=== PATIENT | female | born 1975 | race African-American/Black ===

== ENCOUNTER 2024-11-29 05:49 | Inpatient (IN) | payer BC, OTHER ==
[~2024-11-29] VITALS: Ht 170.2 cm; Wt 92.1 kg
[2024-11-29 05:55] VITALS: O2SAT 98
[2024-11-29 06:47] LABS: BASOPHILS % 0.8 % (0.0-2.0); EOSINOPHILS % 3.2 % (0.0-5.0); HEMATOCRIT. 35.9 % (36.0-48.0); HEMOGLOBIN. 11.8 g/dL (12.0-16.0); LYMPHOCYTES % 23.7 % (20.0-50.0); MEAN PLATELET VOLUME 9.5 fl (7.4-10.4); MONOCYTES % 7.9 % (2.0-8.0); NEUTROPHILS % 64.4 % (40.0-76.0); PLATELET 212 x1000/uL (130-400); RED BLOOD CELL COUNT 4.27 mill/uL (4.2-5.4); RED CELL DISTRIBUTION WIDTH 16.2 % (11.6-14.6)
[2024-11-29 07:03] LABS: CREATININE 1.0 mg/dL (0.6-1.0)
[2024-11-29 07:04] LABS: UREA NITROGEN BLOOD 21 mg/dL (9-23)
[2024-11-29 07:05] LABS: ASPARTATE AMINOTRANSFERASE 15 IU/L (<34)
[2024-11-29] MEDS: ONDANSETRON HCL 4MG/2ML INJ IV ONE (07:05)
[2024-11-29] MEDS: SODIUM CHLORIDE 0.9% 1,000 ML IV ONE (07:05)
[2024-11-29] MEDS: MECLIZINE 25MG TABLET PO ONE (07:05)
[2024-11-29 07:06] LABS: BILIRUBIN DIRECT < 0.1 mg/dL (<=3.0); BILIRUBIN TOTAL 0.3 mg/dL (0.1-1.0); PROTEIN TOTAL 7.1 g/dL (6.0-8.3)
[2024-11-29] MEDS ORDERED: MAGNESIUM/ALUMINUM HYDROXIDE/SIMETHICONE 30ML UDC PO PRN (11:30)
[2024-11-29] MEDS ORDERED: CLONIDINE 0.1MG TABLET PO PRN (11:30)
[2024-11-29] MEDS ORDERED: ACETAMINOPHEN 325MG TABLET PO PRN ×2 (11:30)
[2024-11-29] MEDS ORDERED: GUAIFENESIN 200MG/10ML SUGAR FREE UDC PO PRN (11:30)
[2024-11-29] MEDS ORDERED: IPRATROPIUM/ALBUTEROL 0.5-3(2.5)MG/3ML NEB HHN PRN (11:30)
[2024-11-29] MEDS ORDERED: DOCUSATE SODIUM 100MG CAPSULE PO PRN (11:30)
[2024-11-29 11:54] LABS: PHOSPHORUS 3.7 mg/dL (2.5-4.9)
[2024-11-29 12:00] VITALS: BP 127/69; PULSE 61; RESP 18; TEMP 36.3; TEMP 36.3068; O2SAT 97
[2024-11-29] MEDS: ENOXAPARIN 40MG/0.4ML SYR SUBCUT SCH (12:00)
[2024-11-29 12:20] LABS: FOLIC ACID (FOLATE) SERUM 19.25 ng/mL (>5.38); VITAMIN B12 SERUM 432 pg/mL (211-911)
[2024-11-29] MEDS: ONDANSETRON HCL 4MG/2ML INJ IV PRN (12:31)
[2024-11-29 16:00] VITALS: BP 121/80; PULSE 61; RESP 18; TEMP 36.4; O2SAT 96
[2024-11-29 18:58] LABS: CREATINE KINASE MB FRACTION 0.8 ng/mL (0.5-3.6); TROPONIN I HIGH SENSITIVITY < 4 ng/L (3.0-34)
[2024-11-29 20:00] VITALS: BP_SYST 116; BP_SYST 119; BP_SYST 124; BP_DIAS 67; BP_DIAS 72; BP_DIAS 76; PULSE 63; RESP 18; TEMP 37.6; O2SAT 96
[2024-11-29 22:51] LABS: CLARITY URINE CLEAR (CLEAR); COLOR URINE YELLOW (YELLOW); GLUCOSE URINE NEGATIVE (NEGATIVE); KETONES URINE TRACE (NEGATIVE); LEUKOCYTE ESTERASE URINE NEGATIVE (NEGATIVE); NITRITE URINE NEGATIVE (NEGATIVE); OCCULT BLOOD URINE 3+ (NEGATIVE); PH URINE 7.5 (4.5-8.0); PROTEIN URINE NEGATIVE (NEGATIVE); SPECIFIC GRAVITY URINE 1.021 (1.005-1.030); UROBILINOGEN URINE 0.2 E.U./dL (0.2-1.0)
[2024-11-29 22:54] LABS: BACTERIA URINE TRACE; SQUAMOUS EPITHELIAL CELL URINE FEW /lpf (RARE/1+); WBC URINE 0-2 /hpf (0-2)
[2024-11-29 23:06] LABS: *AMPHETAMINES SCREEN URINE NEGATIVE (NEGATIVE); *BARBITURATES SCREEN URINE NEGATIVE (NEGATIVE); *BENZODIAZEPINES SCREEN URINE NEGATIVE (NEGATIVE); *COCAINE SCREEN URINE NEGATIVE (NEGATIVE); CANNABINOID URINE SCREEN NEGATIVE (NEGATIVE); ECSTASY MDMA SCREEN URINE NEGATIVE (NEGATIVE); METHADONE URINE SCREEN NEGATIVE (NEGATIVE); OPIATES URINE SCREEN NEGATIVE (NEGATIVE); PHENCYCLIDINE URINE SCREEN NEGATIVE (NEGATIVE)
[2024-11-30] VITALS: BP 128/64; PULSE 67; RESP 18; TEMP 36.7; O2SAT 95
[2024-11-30 04:00] VITALS: BP 114/64; PULSE 62; RESP 18; TEMP 36.5; O2SAT 98
[2024-11-30] MEDS: TRAMADOL 50MG TABLET PO SCH (05:32)
[2024-11-30 06:21] LABS: CREATINE KINASE MB FRACTION 0.6 ng/mL (0.5-3.6)
[2024-11-30 06:22] LABS: TROPONIN I HIGH SENSITIVITY < 4 ng/L (3.0-34)
[2024-11-30 06:25] LABS: T4 FREE 1.21 ng/dL (0.89-1.76)
[2024-11-30 06:26] LABS: CREATININE 1.0 mg/dL (0.6-1.0); TRIGLYCERIDE 151 mg/dL (0-150); UREA NITROGEN BLOOD 15 mg/dL (9-23)
[2024-11-30 06:27] LABS: LDL CHOLESTEROL 154 mg/dL (5-100)
[2024-11-30 06:30] LABS: BASOPHILS % 0.4 % (0.0-2.0); EOSINOPHILS % 3.2 % (0.0-5.0); HEMATOCRIT. 35.6 % (36.0-48.0); HEMOGLOBIN. 11.5 g/dL (12.0-16.0); LYMPHOCYTES % 22.6 % (20.0-50.0); MEAN PLATELET VOLUME 10.2 fl (7.4-10.4); MONOCYTES % 7.1 % (2.0-8.0); NEUTROPHILS % 66.7 % (40.0-76.0); PLATELET 222 x1000/uL (130-400); RED BLOOD CELL COUNT 4.29 mill/uL (4.2-5.4); RED CELL DISTRIBUTION WIDTH 16.2 % (11.6-14.6)
[2024-11-30] MEDS ORDERED: SERT50TA MT (07:54)
[2024-11-30] MEDS ORDERED: FLUT9.9S BOTHNSTRLS (07:54)
[2024-11-30] MEDS ORDERED: OMEP20CA14 MT (07:54)
[2024-11-30 08:00] VITALS: BP 138/90; PULSE 65; RESP 18; TEMP 36.3; O2SAT 98
[2024-11-30] MEDS: MULTIVITAMINS,THER W-MINERALS TABLET PO SCH (09:26)
[2024-11-30] MEDS: THIAMINE HCL 100MG TABLET PO SCH (09:26)
[2024-11-30] MEDS: IBUPROFEN 400MG TABLET PO PRN (09:26)
[2024-11-30] MEDS: FERROUS SULFATE 325MG TABLET PO SCH (09:27)
[2024-11-30] MEDS: FOLIC ACID 1MG TABLET PO SCH (09:27)
[2024-11-30] MEDS: PANTOPRAZOLE SODIUM 40 MG/VIAL IV SCH (09:27)
[2024-11-30] MEDS: SERTRALINE HCL 50MG TABLET PO SCH (09:27)
[2024-11-30 12:00] VITALS: BP 125/73; PULSE 75; RESP 16; TEMP 36.2; O2SAT 98
[2024-11-30] MEDS ORDERED: MECL-299 MT (12:24)
[2024-11-30 13:56] VITALS: BP 125/73; PULSE 75; RESP 16; TEMP 97.2
[2024-11-30] MEDS: MECLIZINE 25MG TABLET PO PRN (14:18)
[2024-11-30 15:03] LABS: ASPARTATE AMINOTRANSFERASE 25 IU/L (<34); BILIRUBIN DIRECT < 0.1 mg/dL (<=3.0); BILIRUBIN TOTAL 0.2 mg/dL (0.1-1.0); PROTEIN TOTAL 6.8 g/dL (6.0-8.3)
== END 2024-11-30 14:40 | disposition home or self-care (01) | DRG 149 ==
LOC: ER 06:19 → 6WST 10:42 → EDBEDREQ 10:44 → EDBEDREQTM 10:44 → ENRESERV 10:53
PROVIDERS: ADMIT Hospitalist; ATTEND Hospitalist
DX: H81.11 Benign paroxysmal vertigo, right ear (principal); N39.0 Urinary tract infection, site not specified; K21.9 Gastro-esophageal reflux disease without esophagitis; D64.9 Anemia, unspecified; F41.1 Generalized anxiety disorder; F40.240 Claustrophobia; F41.9 Anxiety disorder, unspecified; R73.9 Hyperglycemia, unspecified
CPT/HCPCS: 36415; 71045; 80048; 80061; 80076; 80305; 81003; 82550; 82553; 82607; 82728; 82746; 83036; 83540; 83550; 83735; 84100; 84439; 84443; 84484; 85025; 85044; 93005; 99285; A4606; J1650; J2405; J2470; J7030; J8597